=== PATIENT | male | born 1950 | race Caucasian/White ===

== ENCOUNTER 2018-02-05 14:28 | Outpatient (CLI) | payer BC ==
[~2018-02-05] VITALS: Ht 175.3 cm; Wt 69.2 kg
--- NOTE | ~2018-02-05 | HEMODYNAMI ---
PATIENT:KAROLYN MANZO MEDICAL RECORD: [id number] : 52 [id number] ADMISSION DATE: 02/05/18 Generatedon:02/06/201810:15 Patient name: KAROLYN MANZO Patient #: [id number] SSN: DO B: 1950 Date of study: 02/06/2018 Page: Of Hemodynamic Procedure Report Patient Data Patient Demographics Procedure consent was obtained First Name: KAROLYN Gender: Male Last Name: ANAIS : 1950 Middle Initial: L Age: 67 year(s) Patient #: [id number] Race: Unknown Additional ID: [id number] Contact details [address]: [address] [place] [address] State: [place] City: [place] Zip code: [address] Past Medical History Allergies: No known allergies Admission Admission Data Admission Date: 02/05/2018 Admission Time: 14:28 Room #: [facility] Procedure Procedure Types Cath Procedure Diagnostic Procedure Cardioversion External ZULAY Procedure Description Procedure Date Procedure Date: 02/06/2018 Procedure Start Time: 10:04 Procedure End Time: 10:14 Procedure Staff Name Function Michael Shipley MD Performing Physician Swetha Brownlee RT Monitor Bal Grossman CRNA Additional personnel Fredy Whaley RN Nurse Judah Montemayor Medical Laboratory Scientist Procedure Data Procedure Complications No complications Procedure Medications Medication Administration Route Dosage Oxygen NC 2 l/min Refer to Anesthesia Notes for Sedation Medications Hurricaine Gateway [address] Sprays Hemodynamics Rest Heart Rate: 140 (bpm) Snapshots Pre Cath Intra NCS Post Cath Vital Signs Time Heart Resp SPO2 etCO2 NIBP (mmHg) Rhythm Pain Sedation Rate (ipm) (%) (mmHg) Status Level (bpm) 9:50:31 140 13 98 0 110/89(98) NSR 0 (11) 10(A) , No pain 9:54:59 139 13 100 23.7 117/85(99) NSR 0 (11) 10(A) , No pain 9:59:30 135 19 100 31.9 118/91(105) NSR 0 (11) 10(A) , No pain 10:04:00 130 15 100 26.7 110/84(100) NSR 0 (11) 10(A) , No pain 10:08:33 73 14 100 16.3 105/75(88) NSR 0 (11) 9(A) , No pain 10:12:24 77 16 98 37.8 100/70(83) NSR 0 (11) 9(A) , No pain 10:13:48 84 14 99 0 104/74(87) NSR 0 (11) 10(A) , No pain Medications Time Medication Route Dose Verified Delivered Reason Notes Effectiven ess by by 9:54:21 Oxygen NC 2 Michael Michael used for l/min Quinten Shipley MD procedure MD 9:57:42 Refer to Michael Michael Per Anesthesia Quinten Shipley MD physician Notes for MD Sedation Medications 9:57:53 Hurricaine [address] Michael Michael Per Gateway Sprays Quinten Shipley MD physician MD Procedure Log Time Note 9:38:45 Swetha Counts RT(R) sent for patient. Start room use. 9:38:46 Time tracking: Regular hours 9:38:50 Plan of Care:Hemodynamics will remain stable., Cardiac rhythm will remain stable., Comfort level will be maintained., Respiratory function will remain adequate., Patient/ family verbilizes understanding of procedure., Procedure tolerated without complication., Recovers from procedure without complications.. 9:44:59 Bal Grossman CRNA present and monitoring patient for TIVA. 9:46:54 Patient arrived from PCU to CCL 1. Patient remains on bed/stretcher for procedure. 9:46:55 Warm blankets applied, and luly hugger turned on for patient comfort. 9:46:56 Correct patient and procedure confirmed by team. 9:46:57 Signed procedure consent form obtained from patient. 9:46:58 ECG and BP/O2 sat monitors applied to patient. 9:49:50 Vital chart was started 9:49:52 Full Disclosure recording started 9:49:54 Rhythm: atrial fibrillation 9:50:01 Patient received from PCU to CCL 1 Alert and oriented. Tansferred to table in Supine position. 9:54:06 Baseline sample Acquired. 9:54:21 Oxygen 2 l/min NC was administered by Michael Shipley MD; used for procedure; 9:55:43 Quick combo pads placed on patients chest and back. 9:55:51 H&P Date Dictated: 02/06/2018 New H&P dictated by physician.. 9:55:53 Pre-procedure instructions explained to patient. 9:55:53 Pre-op teaching completed and patient verbalized understanding. 9:55:55 Family unavailable. 9:55:57 Patient NPO since Midnight. 9:56:03 Patient allergic to No known allergies 9:56:05 Is the patient allergic to Iodine/contrast media? No. 9:56:06 Is patient on blood thinner?Yes 9:56:09 ACC The patient was administered the following blood thiners within the last 24 hours: Eliquis 9:56:11 Patient diabetic? No. 9:56:14 Previous problem with sedation/anesthesia? No ? 9:56:15 Snore? No 9:56:16 Sleep apnea? No 9:56:17 Deviated septum? No 9:56:18 Opens mouth fully? Yes 9:56:19 Sticks out tongue? Yes 9:56:21 Airway obstruction? No ? 9:56:22 Dentures? No ? 9:56:25 Patient pain scale 0/10 ?. 9:56:34 IV patent on arrival in right forearm with 0.9% NaCl at [facility]. 9:56:37 Lab results completed and on chart. 9:56:46 Alarms reviewed by Matias Garcia 9:57:42 Refer to Anesthesia Notes for Sedation Medications was administered by Michael Shipley MD; Per physician; 9:57:53 Hurricaine Gateway 1 Sprays P.O. was administered by Michael Shipley MD; Per physician; 10:03:17 Final Timeout: patient, procedure, and site verified with staff and physician. All members of the team are in agreement. 10:03:21 Physical assessment completed. ASA score P 2 - A patient with mild systemic disease as per Michael hSipley MD. 10:03:25 Sedation plan: TIVA Medication:Propofol 10:04:38 Procedure started. 10:04:49 Judah Montemayor Social Media Content Manager present for ZULAY. 10:04:51 ZULAY started. 10:05:39 ZULAY completed. 10:06:41 Quick Combo opened to sterile field. 10:07:14 Defibrillator synced and charged to 150 Joules. 10:07:20 Shock delivered. 10:07:33 Patient cardioverted to sinus bradycardia. 10:07:50 Procedure ended.(Physican Out) 10:09:16 Post-procedure physical assessment completed. ASA score P 2 - A patient with mild systemic disease as per Michael Shipley MD. 10:09:20 Post procedure rhythm: sinus rhythm 10:09:23 Post procedure instruction explained to patient.Patient verbalizes understanding. 10:09:23 Patient needs reinforcement of post procedure teaching. 10:09:31 Procedure type changed to Cath procedure, Diagnostic procedure, Cardioversion External, ZULAY 10:09:35 Procedure Complication : No complications 10:09:37 See physician's report for complete and final results. 10:09:53 Procedure and supply charges have been captured, reviewed, submitted and are correct. 10:14:03 Vital chart was stopped 10:14:06 Report given to PCU. 10:14:09 Patient transfered to PCU with Bed. 10:14:12 Procedure ended. 10:14:12 Full Disclosure recording stopped 10:14:15 End room use (Document Last) Device Usage Item Manufacture Quantity Catalog Hospital Part Current Minimal Lot# / Name Number Charge Number Stock Stock Nohemy al# Code CardLab 1 [id number] Combo Signature Audit [place] Stage Time Signature Unsigned Intra-Procedure 02/06/2018 Swetha 10:15:31 AM Counts RT(R) Signatures Monitor : Swetha Signature : Counts RT Date : Time : [place] [id number] [place] [id number]
[~2018-02-05 14:28] MED LIST: AMBIEN CR12.5 MG/BO PO; ATIVAN1 MG PO; CYCLOBENZAPRINE10 MG PO; DUCOLAX RC; FEOSOL LIQ300 MG/5 M PO; FISH OIL 1,0001 CA1 PO; GAS-X125 M1 PO; GLUCOPHAGE500 MG PO; GLUCOSAMINE HC500 MG PO; HYDROCODONE-APA1 TAB PO; INSPRA25 MG PO; L-METHYLFOLATE7.5 MG PO; LOSARTAN POTASS25 MG PO; MAGNESIUM CITRATE PO; MIRALAX17 GM PO; MULTIPLE VITAMI1 TA1 PO; NEURONTIN800 MG PO; NORVASC5 MG PO; OXYCONTIN40 MG PO; PERCOCET 10/3251 TA1 PO; PROBIOTIC1 EAC1 PO; PROMETHAZINE GEL; SOMA350 MG PO; ULTRAM50 MG PO; VITAMIN A10000 UNIT PO; VITAMIN B COMPL1 TAB PO; VITAMIN D5000 UNIT PO
[2018-02-05 15:58] VITALS: BP 92/74; BMI 22.2
[2018-02-05 16:32] LABS: BASOPHILS 0.2 % (0-2); EOSINOPHILS 1.1 % (0-7); HEMOGLOBIN 14.4 g/dL (13.5-17.5); IMMATURE GRANULOCYTES 0.2 % (0-5); LYMPHOCYTES 16.1 % (15-50); MCH 31.5 pg (26.0-34.0); MCHC 35.1 g/dL (31.0-37.0); MCV 89.7 fL (80.0-100.0); MONOCYTES 7.9 % (2-11); NEUTROPHILS 74.5 % (40-80); PLATELET COUNT 265 10x3/uL (130-400); RBC 4.57 10x6/uL (4.20-6.10); RDW 12.8 % (11.5-14.5); WBC 6.4 10x3/uL (4.8-10.8)
[2018-02-05 16:55] VITALS: BP 92/74
[2018-02-05 17:02] LABS: ALBUMIN 3.5 g/dL (3.4-5.0); ALKALINE PHOSPHATASE 71 U/L (46-116); ALT (SGPT) 34 U/L (10-68); BILIRUBIN - TOTAL 0.31 mg/dL (0.2-1.3); CALC OSMOLALITY 282 mosm/kg (275-300); CALCIUM 9.2 mg/dL (8.5-10.1); CARBON DIOXIDE 27.1 mmol/L (21.0-32.0); CHLORIDE - SERUM 105 mmol/L (98-107); GLUCOSE 102 mg/dL (74-106); POTASSIUM - SERUM 4.4 mmol/L (3.5-5.1); PROTEIN - SERUM 6.5 g/dL (6.4-8.2); SODIUM 140 mmol/L (136-145); UREA NITROGEN 25 mg/dL (7-18); eGFR NON AFRICAN AMERICAN 79 mL/min (90-120)
[2018-02-05 17:16] LABS: CKMB 1.9 U/L (0.0-3.6); CREATINE KINASE 106 UL (21-232); PRO BNP 3225 pg/mL (0-125); TROPONIN-I 0.057 ng/mL (0.000-0.060)
[2018-02-05 21:09] VITALS: BP 99/72
[2018-02-05 22:49] LABS: CREATINE KINASE 103 UL (21-232)
[2018-02-05 22:50] LABS: TROPONIN-I 0.068 ng/mL (0.000-0.060)
[2018-02-06] VITALS: BP 105/76
[2018-02-06 05:15] LABS: CKMB 1.5 U/L (0.0-3.6); CREATINE KINASE 90 UL (21-232); TROPONIN-I 0.056 ng/mL (0.000-0.060)
[2018-02-06 06:16] VITALS: BP 115/82
[2018-02-06 09:07] VITALS: BP 109/81
[2018-02-06] MEDS ORDERED: ELIQUIS5 MG PO (10:39)
[2018-02-06 11:00] VITALS: Ht 175.3 cm; Wt 69.2 kg
== END 2018-02-06 14:38 | disposition home or self-care (01) ==
LOC: D.M2 14:28 → UNDOADMIN 14:28 → D.OPS 14:28 → D.SDCHOLD 14:28 → D.CLR 14:28 → D.SDCHOLD 14:39 → D.M2 14:39 → EDSTATUS 02-06 09:30 → D.CLR 02-06 10:30 → D.M2 02-06 10:30 → D.CLR 02-06 10:30 → D.OPS 02-06 14:38 → D.CLR 02-06 14:38
PROVIDERS: Internal Medicine Cardiovascular Disease
DX: I48.92 Unspecified atrial flutter (principal); R00.0 Tachycardia, unspecified; E11.9 Type 2 diabetes mellitus without complications; I10 Essential (primary) hypertension; F32.9 Major depressive disorder, single episode, unspecified; F41.9 Anxiety disorder, unspecified; G47.00 Insomnia, unspecified

== ENCOUNTER → 2018-02-26 12:40 | Outpatient (CLI) | payer BC ==
[2018-02-06 11:00] VITALS: BMI 22.2
--- NOTE | ~2018-02-26 | EC ---
PATIENT:KAROLYN MANZO DATE OF SERVICE: 02/26/18 SEX: M MEDICAL RECORD: [id number] DATE OF : 52 LOCATION:[facility] AGE OF PATIENT: 67 ADMISSION DATE: 02/26/18 REFERRING PHYSICIAN: INTERPRETING PHYSICIAN: CYNTHIA CERVANTES MD ECHOCARDIOGRAM REPORT ECHO CHARGES 4 ECHO COMPLETE Date: 02/26 CLINICAL DIAGNOSIS: A-FLUTTER/CP/DYSPNEA/HTN/ ARRHYTHMIAS ECHOCARDIOGRAPHIC MEASUREMENTS (adult normal given) AC root (d.<3.7cm) 3.3 cm LV Septum d (<1.2 cm> 1.7 cm Valve Excursion 2.3 cm LV Septum (systole) 2.2 cm Left Atria (s.<4.0cm> 3.5 cm LVPW d(<1.2cm) 1.5 cm RV (d.<2.3cm) 2.5 cm LVPW (sytole) 2.1 cm LV diastole(<5.6CM) 4.4 cm MV E-F(>70mm/sec) cm LV systole 2.2 cm LVOT Diameter 2.1 cm MV exc.(>10mm) cm Est.ejection fraction (50-75%) % DOPPLER: LVIT cm/sec A 47.0 cm/sec E 33.0 cm/sec LA cm/sec RVSP 31.0 mmHg LVOT 88.0 cm/sec AOP1/2T m/s Asc. Ao 126 cm/sec RVOT 62.0 cm/sec RA cm/sec PA 84.0 cm/sec AV Gradient Peak 6.3 mmHg AV Mean 3.6 mmHg AV Area 2.1 cm MV Gradient Peak 2.3 mmHg MV Mean 0.72 mmHg MV Area cm COMMENTS: Legal Librarian: 1 NEMO HURTADODSOE Concentrator Operator: 4 Dr. Cervantes TAPE# PACS Pericardial Effusion N DATE OF SERVICE: PROCEDURE: Transthoracic echocardiogram. FINDINGS: 1. The left ventricle shows mild to moderate concentric left ventricular hypertrophy. Inflow characteristics are consistent with diastolic dysfunction. Ejection fraction is 55% to 60% without obvious regional wall motion abnormalities. 2. Mitral valve is structurally normal with [id number] mitral ECHOCARDIOGRAM REPORT [id number] KAROLYN MANZO regurgitation. 3. The aortic valve is structurally normal with trace to mild aortic insufficiency. 4. Tricuspid valve has mild tricuspid regurgitation with normal right ventricular systolic pressures. 5. The pericardium is normal. 6. The right ventricle is normal size, normal function. 7. The right atrium is normal size, normal function. 8. Pulmonic valve is grossly normal. CONCLUSION: The patient has evidence of mild hypertensive heart disease, otherwise normal echocardiogram for patient's stated age. TRANSINT:[id number] Voice Confirmation ID: [id number] DOCUMENT ID: [id number] CYNTHIA CERVANTES MD at 0741 CC: [id number] DICTATION DATE: 02/27/18 0744 DRAWER MAKER: 02/27/18 1154 DEP CLI 02/26/18 [facility] [address] [place] [address]
[~2018-02-26 12:40] MED LIST changes: +ELIQUIS5 MG PO
== END | disposition home or self-care (01) ==
LOC: D.ECHO 12:40
DX: I48.92 Unspecified atrial flutter (principal); R07.9 Chest pain, unspecified; R06.02 Shortness of breath; I10 Essential (primary) hypertension; I49.9 Cardiac arrhythmia, unspecified